=== PATIENT | female | born 1965 | race African-American/Black ===

== ENCOUNTER 2017-11-23 09:18 | Outpatient (CLI) | payer MEDICARE, MEDICAID | END 2017-11-23 09:19 | disposition home or self-care (01) | LOC: BICMAMMO 09:18 | PROVIDERS: ATTEND Nurse Practitioner Family | DX: Z12.31 Encounter for screening mammogram for malignant neoplasm of breast (principal) | CPT/HCPCS: 77063; 77067 ==

== ENCOUNTER 2018-11-26 11:46 | Outpatient (CLI) | payer MEDICARE, MEDICAID | END 2018-11-26 11:47 | disposition home or self-care (01) | LOC: BICMAMMO 11:46 | PROVIDERS: ATTEND Nurse Practitioner Family | DX: Z12.31 Encounter for screening mammogram for malignant neoplasm of breast (principal) | CPT/HCPCS: 77063; 77067 ==

== ENCOUNTER 2018-12-20 15:06 | Emergency (ER) | payer MEDICARE, MEDICAID ==
--- NOTE | 2018-12-20 16:05 | RAD ---
AP PELVIS 1 VIEW: Date: 12/20/18 HISTORY: Injury following a fall while walking. FINDINGS/IMPRESSION: No fracture, dislocation, or other significant acute process. Mild degenerative changes of both hip j oints. POS: [facility]
--- NOTE | 2018-12-20 16:06 | RAD ---
2-3 VIEW RIGHT HIP: Date: 12/20/18 INDICATION: Fall with right hip pain. FINDINGS: No fracture or dislocation of the right hip is seen. There is mild osteoarthritis. IMPRESSION: No acute osseous abnormality of the right hip. POS: [facility]
--- NOTE | 2018-12-20 17:05 | RAD ---
RIGHT TOES: 12/20/18 Right toe pain following an injury from a slip and fall. There is soft tissue swelling of the fifth t oe. 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 I cannot demonstrate any overt acute fracture. IMPRESSION: Soft tissue swelling of the fifth toe without acute fracture or dislocation. Evidence for fusion of t he distal interphalangeal joint of the fifth toe. POS: [facility]
== END 2018-12-20 17:36 | disposition home or self-care (01) ==
LOC: ERS 15:06
DX: S70.01XA Contusion of right hip, initial encounter (principal); S90.112A Contusion of left great toe without damage to nail, initial encounter; I25.10 Atherosclerotic heart disease of native coronary artery without angina pectoris; I10 Essential (primary) hypertension; W19.XXXA Unspecified fall, initial encounter
CPT/HCPCS: 72170

== ENCOUNTER 2019-01-26 14:26 | Emergency (ER) | payer MEDICARE, MEDICAID ==
[2019-01-26] MEDS ORDERED: Ketorolac Tromethamine 30 MG/ML VIAL ONE (14:46)
--- NOTE | 2019-01-26 16:07 | RAD ---
EXAM: XR Lumbar Spine 2 Or 3 View PROVIDED CLINICAL HISTORY: Low back pain. Radiation of pain down left leg. COMPARISON: None FINDINGS: There 5 nonrib-bearing lumbar-type vertebral bodies. Scattered osteophytes are seen in the lumbar spi ne. Lateral view is rotated, but vertebral body heights appear to be within normal limits without evidence for fracture. There is mild loss of intervertebral disc height at the lumbosacral junction. No fracture or subluxation is appreciated on this exam. Vascular calcifications are seen in the iliac arteries. IMPRESSION: Mild degenerative changes in lumbar spine, but no fracture or subluxation is appreciated.
== END 2019-01-26 16:14 | disposition home or self-care (01) ==
LOC: ERS 14:26
DX: M54.5 Low back pain (principal); G89.29 Other chronic pain; I25.10 Atherosclerotic heart disease of native coronary artery without angina pectoris; I10 Essential (primary) hypertension
CPT/HCPCS: 72100; 96372; J1885

== ENCOUNTER 2019-08-28 10:37 | Emergency (ER) | payer MEDICARE, MEDICAID ==
--- NOTE | 2019-08-28 11:24 | RAD ---
XR Chest Pa Lat STANDARD HISTORY: Sore throat. COMPARISON: None FINDINGS: The heart size is normal. A left-sided AICD is present. The lungs are well expanded without focal areas of consolidation, pneumothorax or pleural effusions. IMPRESSION: No radiographic evidence of acute cardiopulmonary process.
== END 2019-08-28 11:40 | disposition home or self-care (01) ==
LOC: SCSER 10:37
DX: J02.9 Acute pharyngitis, unspecified (principal); I11.0 Hypertensive heart disease with heart failure; I50.9 Heart failure, unspecified; Z79.899 Other long term (current) drug therapy
CPT/HCPCS: 71046

== ENCOUNTER 2019-09-22 13:33 | Emergency (ER) | payer MEDICARE, MEDICAID ==
[2019-09-22 14:37] LABS: Bacteria/HPF None Seen HPF (None Seen); Bilirubin Negative (Negative); Blood, Urine 2+ (Negative); Clarity Clear (Clear); Glucose, Urine (Dipstick) Normal (Negative); Leukocyte Negative Leu/uL (Negative); Mucous/LPF 1+ LPF (<2+); Nitrite Negative (Negative); Protein, Urine (Dipstick) Negative (Neg-Trace); RBC/HPF 0-3 HPF (0-3); Squamous Epithelial 0-3 HPF (0-3); Urobilinogen Normal mg/dL (Less than 2); WBC/HPF 0-3 HPF (0-3)
[2019-09-22] MEDS ORDERED: Ondansetron ODT 4 MG TAB ONE (15:59)
[2019-09-22] MEDS ORDERED: Morphine 4 MG/ML VIAL ONE (15:59)
== END 2019-09-22 16:51 | disposition home or self-care (01) ==
LOC: ERS 13:33
DX: M54.42 Lumbago with sciatica, left side (principal); I11.0 Hypertensive heart disease with heart failure; I50.9 Heart failure, unspecified; Z79.891 Long term (current) use of opiate analgesic; Z79.899 Other long term (current) drug therapy; Z79.82 Long term (current) use of aspirin
CPT/HCPCS: 81003; 81015; 96372; 99283; J2270; Q0162

== ENCOUNTER 2019-12-11 08:49 | Outpatient (CLI) | payer MEDICARE, MEDICAID ==
--- NOTE | 2019-12-11 09:29 | MMO ---
Bilateral MAMMO Bilat Screen [facility]. CLINICAL HISTORY: Patient is 54 years old and is seen for screening. The patient has no family history of breast cancer. The patient has no personal history of cancer. VIEWS: The views performed were: bilateral craniocaudal with tomosynthesis and bilateral mediolateral oblique with tomosynthesis. FILMS COMPARED: The present examination has been compared to prior imaging studies performed at [facility] on 11/23/2017 and 11/26/2018. This study has been interpreted with the assistance of computer-aided detection. MAMMOGRAM FINDINGS: The breasts are heterogeneously dense, which could obscure a lesion on mammography. There are no suspicious masses, suspicious calcifications, or new areas of architectural distortion. IMPRESSION: THERE IS NO MAMMOGRAPHIC EVIDENCE OF MALIGNANCY. A ROUTINE FOLLOW-UP MAMMOGRAM IN 1 YEAR IS RECOMMENDED. THE RESULTS OF THIS EXAM WERE SENT TO THE PATIENT. ACR BI-RADS Category 1 - Negative MAMMOGRAPHY NOTE: 1. A negative mammogram report should not delay a biopsy if a dominant of clinically suspicious mass is present. 2. Approximately 10% to 15% of breast cancers are not detected by mammography. 3. Adenosis and dense breasts may obscure an underlying neoplasm. Reported by: SILVIA HELMS MD Electonically Signed: [id number]
== END 2019-12-11 08:50 | disposition home or self-care (01) ==
LOC: BICMAMMO 08:49
PROVIDERS: ATTEND Nurse Practitioner Family
DX: Z12.31 Encounter for screening mammogram for malignant neoplasm of breast (principal)
CPT/HCPCS: 77063; 77067

== ENCOUNTER 2020-03-06 07:15 | Outpatient (CLI) | payer MEDICARE, MEDICAID ==
--- NOTE | 2020-03-06 10:51 | MRI ---
LUMBAR SPINE MRI WITHOUT IV CONTRAST: HISTORY: Low back pain. FINDINGS: There are some generalized disk desiccation changes and ligament and facet hypertrophic changes. Con us medullaris region appears unremarkable. No evidence for acute abnormal marrow edema. T12-L1 disk: Unremarkable. L1-L2 disk: Unremarkable. L2-L3 disk: Unremarkable. L3-L4 disk: Unremarkable. L4-L5 disk: Mild bulging, but no evidence for canal, lateral recess, or foraminal stenosis. L5-S1 disk: Mild disk bulging, but no canal, lateral recess, or foraminal stenosis. IMPRESSION: Mild spondylosis with some disk desiccation change and ligament and facet hypertrophic changes, but n o evidence for significant associated stenosis. POS: [facility]
== END 2020-03-06 07:16 | disposition home or self-care (01) ==
LOC: MRI 07:15
PROVIDERS: ATTEND Surgery
DX: M47.26 Other spondylosis with radiculopathy, lumbar region (principal); M46.06 Spinal enthesopathy, lumbar region
CPT/HCPCS: 72148

== ENCOUNTER 2020-03-16 11:21 | Outpatient (CLI) | payer MEDICARE, MEDICAID ==
--- NOTE | 2020-03-16 16:10 | RAD ---
FOUR VIEWS OF THE LUMBAR SPINE: DATE: 03/16/2020. COMPARISON: None. HISTORY: Low back pain with lumbar radiculopathy. FINDINGS: Incompletely imaged transvenous pacing device present. Five lumbar-type vertebral bodies are present with intact pedicles on frontal imaging. Standing lateral exam in the neutral position demonstrates no anterolisthesis or retrolisthesis. Fle xion imaging and extension imaging demonstrates no anterolisthesis or retrolisthesis. No acute osseous abnormality. IMPRESSION: No acute findings. POS: [facility]
== END 2020-03-16 11:22 | disposition home or self-care (01) ==
LOC: BICRAD 11:21
PROVIDERS: ATTEND Surgery
DX: M54.16 Radiculopathy, lumbar region (principal); M54.5 Low back pain
CPT/HCPCS: 72110

== ENCOUNTER 2020-12-14 08:08 | Outpatient (CLI) | payer MEDICARE, MEDICAID | END 2020-12-14 08:09 | disposition home or self-care (01) | LOC: BICMAMMO 08:08 | PROVIDERS: ATTEND Nurse Practitioner Family | DX: Z12.31 Encounter for screening mammogram for malignant neoplasm of breast (principal) | CPT/HCPCS: 77063; 77067 ==

== ENCOUNTER 2021-06-24 10:11 | Emergency (ER) | payer MEDICARE, MEDICAID ==
[2021-06-24] MEDS ORDERED: Ketorolac Tromethamine 30 MG/ML VIAL ONE (11:02)
== END 2021-06-24 11:21 | disposition home or self-care (01) ==
LOC: ERS 10:11
DX: G89.29 Other chronic pain (principal); M79.661 Pain in right lower leg; M79.662 Pain in left lower leg; I11.0 Hypertensive heart disease with heart failure; I50.9 Heart failure, unspecified; F17.210 Nicotine dependence, cigarettes, uncomplicated; Z79.82 Long term (current) use of aspirin; Z79.899 Other long term (current) drug therapy
CPT/HCPCS: 96372; 99283; J1885

== ENCOUNTER 2022-04-22 10:45 | Outpatient (CLI) | payer MEDICARE, MEDICAID | END 2022-04-22 10:46 | disposition home or self-care (01) | LOC: BICMAMMO 10:45 | PROVIDERS: ATTEND Nurse Practitioner Family | DX: Z12.31 Encounter for screening mammogram for malignant neoplasm of breast (principal) | CPT/HCPCS: 77063; 77067 ==

== ENCOUNTER 2023-01-03 11:07 | Emergency (ER) | payer OTHER, MEDICAID ==
[2023-01-03] MEDS ORDERED: Ketorolac Tromethamine 30 MG/ML VIAL ONE (12:29)
[2023-01-03] MEDS ORDERED: fentaNYL 50 mcg/mL 1 mL Vial ONE (12:29)
== END 2023-01-03 12:56 | disposition home or self-care (01) ==
LOC: ERS 11:07
DX: M54.50 Low back pain, unspecified (principal); G89.29 Other chronic pain; I11.0 Hypertensive heart disease with heart failure; I50.9 Heart failure, unspecified; F17.210 Nicotine dependence, cigarettes, uncomplicated; Z79.899 Other long term (current) drug therapy; Z79.82 Long term (current) use of aspirin
CPT/HCPCS: 96372; 99283; J1885; J3010

== ENCOUNTER 2023-08-11 12:42 | Emergency (ER) | payer OTHER, MEDICAID | END 2023-08-11 14:27 | disposition home or self-care (01) | LOC: ERS 12:42 | DX: M25.562 Pain in left knee (principal); I11.0 Hypertensive heart disease with heart failure; I50.9 Heart failure, unspecified; Z79.899 Other long term (current) drug therapy; Z79.82 Long term (current) use of aspirin ==

== ENCOUNTER 2023-09-09 14:49 | Emergency (ER) | payer OTHER, MEDICAID | END 2023-09-09 16:36 | disposition left against medical advice (07) | LOC: ERS 14:49 | DX: Z53.29 Procedure and treatment not carried out because of patient's decision for other reasons (principal) ==

== ENCOUNTER 2023-09-22 09:14 | Outpatient (CLI) | payer OTHER, MEDICAID | END 2023-09-22 09:15 | disposition home or self-care (01) | LOC: BICMAMMO 09:14 | PROVIDERS: ATTEND Student in an Organized Health Care Education/Training Program | DX: Z12.31 Encounter for screening mammogram for malignant neoplasm of breast (principal) | CPT/HCPCS: 77063; 77067 ==

== ENCOUNTER 2023-10-19 11:17 | Outpatient (CLI) | payer OTHER, MEDICAID | END 2023-10-19 11:18 | disposition home or self-care (01) | LOC: BICRAD 11:17 | PROVIDERS: ATTEND Student in an Organized Health Care Education/Training Program | DX: S46.011A Strain of muscle(s) and tendon(s) of the rotator cuff of right shoulder, initial encounter (principal); M19.011 Primary osteoarthritis, right shoulder ==

== ENCOUNTER 2024-10-10 15:23 | Outpatient (CLI) | payer OTHER, MEDICAID | END 2024-10-10 15:24 | disposition home or self-care (01) | LOC: BICMAMMO 15:23 | PROVIDERS: ATTEND Student in an Organized Health Care Education/Training Program | DX: Z12.31 Encounter for screening mammogram for malignant neoplasm of breast (principal) | CPT/HCPCS: 77063; 77067 ==